=== PATIENT | male | born 1970 | race Caucasian/White ===

== ENCOUNTER 2017-12-19 18:09 | Emergency (ER) | payer BC, OTHER ==
--- NOTE | 2017-12-19 18:12 | PDOC ---
Rapid Medical Evaluation Time Seen by Provider: 12/19/17 18:10 Medical Evaluation: Allergies Allergy/AdvReac Type Severity Reaction Status Date / Time No Known Allergies Allergy Verified 08/24/12 20:15 12/19/17 18:10 I have performed a brief in-person evaluation of this patient. The patient presents with a chief complaint of: biopsy to R arm, swelling and worsening pain, 8/10 with movement, denies fever Pertinent physical exam findings: erythema/swelling/warmth/tenderness to R wrist I have ordered the following: labs, x-ray The patient will proceed to the ED for further evaluation. Discharge Disposition - Diagnosis Swelling of wrist - Referrals - Patient Instructions - Post Discharge Activity
[2017-12-19 18:15] VITALS: BP 139/90; PULSE 65; TEMP 97.8; BMI 30.7
[2017-12-19] MEDS ORDERED: ACETAMINOPHEN 325 MG TABLET (FP) ONE (19:48)
--- NOTE | 2017-12-19 19:49 | PDOC ---
History of Present Illness - General Chief Complaint: Pain Stated Complaint: PAIN RT ARM REDNESS, EDEMA POST BIOPSY Time Seen by Provider: 12/19/17 18:10 History Source: Patient - History of Present Illness Occurred: reports: other Upper Extremity Pain Location: right: wrist Past History - Past Medical History Allergies/Adverse Reactions: Allergies Allergy/AdvReac Type Severity Reaction Status Date / Time No Known Allergies Allergy Verified 12/19/17 18:15 Home Medications: Ambulatory Orders No Home Medications 0 dose .ROUTE UTDICT 08/24/12 Tramadol HCl 50 mg PO Q6H #12 tablet MDD 200 mg 12/19/17 Anemia: No Asthma: No Cancer: No Cardiac Disorders: No CVA: No COPD: No CHF: No Dementia: No Diabetes: No GI Disorders: No Disorders: No HTN: No Hypercholesterolemia: No Liver Disease: No Seizures: No Thyroid Disease: No - Surgical History Abdominal Surgery: No Appendectomy: Yes Cardiac Surgery: No Cholecystectomy: No Lung Surgery: No Neurologic Surgery: No Orthopedic Surgery: No - Suicide/Smoking/Psychosocial Hx Smoking Status: No Smoking History: Never smoked Number of Cigarettes Smoked Daily: 0 Information on smoking cessation initiated: No Hx Alcohol Use: No Drug/Substance Use Hx: No Substance Use Type: None Hx Substance Use Treatment: No Review of Systems - Review of Systems Constitutional: No: Chills, Fever, Malaise ABD/GI: No: Nausea, Vomiting Musculoskeletal: Yes: Joint Pain, Joint Swelling (mi) *Physical Exam - Vital Signs Last Vital Signs Temp Pulse Resp BP Pulse Ox 97.8 F 65 18 139/90 98 12/19/17 18:12 12/19/17 18:12 12/19/17 18:12 12/19/17 18:12 12/19/17 18:12 - Physical Exam General Appearance: Yes: Appropriately Dressed. No: Apparent Distress HEENT: positive: Normal Voice Neck: positive: Supple Respiratory/Chest: negative: Respiratory Distress Extremity: positive: Tender, Swelling (minimal swelling over dorsum of ulnar aspect of R wrist, site significantly tender to palpation, no erythema or warmth , FROMI) Medical Decision Making - Medical Decision Making 12/19/17 19:42 47 yo M, dx w/ "benign" lesion to distal R ulna 1 month ago, s/p biopsy 1 week ago and scheduled for surgical resection in 2 days at [place] and now presenting with pain and swelling since his biopsy that may be worsening now. Denies fever, chills or malaise. See exam R wrist pain/swelling s/p recent biopsy for ulna lesion at [place] Scheduled for resection at [place] in 2 days Stable w/ mild swelling and significant ttp over ulnar aspect of R wrist, no hot , red joint, minimal pain w/ ROM -pain control -XR -will contact ortho at [place] (Dr Pawan Sebastian [phone]) 12/19/17 20:29 Xray demonstrates lesion to distal ulnar w/ post op changes (2/2 recent bx) as d /w Main ED attg, Dr Bhagat, who reviewed xray. At this time, have not yet heard back from patient's orthopedic, Dr. Pawan Sebastian at [place] though I have called and left a message over an hour ago. Patient states he does not wish to continue to wait. Patient instructed that he will need to call his doctor first thing in the morning for further recommendations. Deny bandage placed for swelling and small dose of tramadol sent to pharmacy. Reasons to return to ER discussed with patient *DC/Admit/Observation/Transfer Diagnosis at time of Disposition: Swelling of wrist - Discharge Dispostion Disposition: HOME Condition at time of disposition: Good - Prescriptions Prescriptions: Tramadol HCl 50 mg PO Q6H #12 tablet MDD 200 mg - Referrals - Patient Instructions Additional Instructions: Your pain and swelling is most likely secondary to your recent biopsy. There was no indication of infection at this time but you will need to be evaluated by your orthopedist tomorrow. We attempted to contact your doctor, but did not hear back from M.D. It is extremely important that you contact your orthopedics in the a.m. Return to the ER for worsening pain, redness over joint or fever. Take pain medication as prescribed - Post Discharge Activity
== END 2017-12-19 20:56 | disposition home or self-care (01) ==
LOC: JERFT 18:09
DX: G89.18 Other acute postprocedural pain (principal)
CPT/HCPCS: 73090-TC-RT-FY; 99282-25